=== PATIENT | female | born 2000 | race Caucasian/White ===

== ENCOUNTER 2023-11-27 08:00 | Day surgery (SDC) | payer BC, OTHER ==
[2023-11-21 09:13] VITALS: BP 117/76
[~2023-11-27] VITALS: Ht 162.6 cm; Wt 86.4 kg
[~2023-11-27 08:00] MED LIST: PROZAC20 MG PO; VISTARIL25 MG PO
[2023-11-27 08:36] VITALS: BP 119/73
--- NOTE | 2023-11-27 09:20 | NUR ---
0850: PATIENT UP TO BATHROOM TO DO FLEETS ENEMA. 0905: FLEETS ENEMA COMPLETE. PATIENT TOLERATED IT WELL. PATIENT BACK IN ROOM. 0910: IV FLUIDS STARTED. IV FLAGYL INFUSION STARTED. CALL LIGHT WITHIN REACH.
--- NOTE | 2023-11-27 10:56 | NUR ---
11/27/23 1056 Lara Landrum PT TO PACU ALERT AND AWAKE DENIES PAIN AND NAUSEA.
[2023-11-27 11:12] VITALS: BP 115/75
--- NOTE | 2023-11-27 13:31 | OR ---
[facility] [address] [place], [place] [address] Signed DATE OF OPERATION: 11/27/2023 SURGEON: Maribell Goldstein MD PREOPERATIVE DIAGNOSIS: Posterior midline anal skin tag (3 x 5 mm). POSTOPERATIVE DIAGNOSIS: Posterior midline anal skin tag (3 x 5 mm). PROCEDURE: Excision of posterior midline anal skin tag x1. ESTIMATED BLOOD LOSS: Minimal. INDICATIONS: Sridevi is a 23-year-old female, asked to see me for an external hemorrhoidal anal skin tag in the posterior midline. She told me it has been there several years. She describes an anal fissure while she lived in [place], [place]. She had been working with the colorectal surgeon. She is describing diltiazem cream that helped her fissure heal over. She has now moved to [place], [place]. She is doing work for the [employer]. She said that skin tag is troublesome for her perianal hygiene. She would like to have it removed. Her primary care provider asked to see me with respect to the above. In the office, one can easily see the small 3 x 5 mm skin tag. The posterior midline anal fissure has healed over. Her sphincter tone is quite significant given her young age and body habitus. She does have a little bit external hemorrhoid tissue as expected. I gave her our brochure on hemorrhoids and skin tags. We looked at it carefully. We had reviewed the nature of the surgery. She understands we will excise the skin tag but not close the skin. It will heal over secondarily over the course of a couple of months. She knows there is risk including, but not limited to bleeding, infection, scarring, change in contour of the skin as well as recurrent anal fissure and hemorrhoids. She has expressed understanding and would like to proceed. DESCRIPTION OF PROCEDURE: I met with Sridevi in our preop area. Our nurse in home sales representative provided her with a saddle block. She told me her back later to take her home. Specifically she said her sister would be returning. After this, we took Sridevi into the operating room and placed her in the prone tristian-knife position with appropriate padding and monitoring. She was given monitored anesthesia care per our nurse in home sales representative. She was given Electronically Signed By: MARIBELL GOLDSTEIN MD 11/27/23 1331 PATIENT NAME: SRIDEVI MART OPERATIVE REPORT DATE OF : 89 REPORT #: [id number] PHYSICIAN: MARIBELL GOLDSTEIN MD PCP: RUBI BELLA PA-C REPORT IS CONFIDENTIAL AND NOT TO BE RELEASED WITHOUT AUTHORIZATION [facility] [address] [place], [place] [address] Signed preoperative antibiotics along with subcutaneous heparin after the saddle block. SCDs were utilized. She was prepped and draped in the usual sterile fashion. We used cautery to simply excise the small skin tag and pass it off the field for pathologic review. As always, it bled a little bit, which was easily controlled with the cautery. We injected some additional local anesthetic underneath the area. A dry gauze was placed into the gluteal cleft and mesh underwear was applied. She was rotated in the supine position on her hospital bed and taken into the recovery room in stable condition. MD PATRICIO Duffy/MARISAL /[id number] cc: MD Rubi Duffy PA-C Copies: MARIBELL GOLDSTEIN MD, CHLOE K PA-C ~ Electronically Signed By: MARIBELL GOLDSTEIN MD 11/27/23 1331 PATIENT NAME: SRIDEVI MART OPERATIVE REPORT DATE OF : [birth year] REPORT #: [id number] PHYSICIAN: MARIBELL GOLDSTEIN MD PCP: RUBI BELLA PA-C REPORT IS CONFIDENTIAL AND NOT TO BE RELEASED WITHOUT AUTHORIZATION
--- NOTE | 2023-12-02 17:10 | PATH ---
[facility] [address] [place], [place] [address] Signed SPECIMEN(S): A ANAL SKIN TAG SPECIMEN SOURCE: A. ANAL SKIN TAG CLINICAL HISTORY: Anal skin tag FINAL PATHOLOGIC DIAGNOSIS: Anal skin tag: - Benign squamous fibroepithelial polyp. - Negative for atypical features of pathologic inflammation. JVR:clv MICROSCOPIC EXAMINATION: Histologic sections of all submitted blocks are examined by light microscopy. These findings, together with the gross examination, support the pathologic diagnosis. GROSS DESCRIPTION: The specimen, labeled and designated "Velho, M, " and designated on the requisition "anal skin tag," is received in formalin and consists of a 1.4 x 1.4 x 0.7 cm unoriented polypoid portion of skin. The skin surface is rush-cobb and wrinkled. The specimen is inked, sectioned and entirely submitted in (A1). FB (under the direct supervision of a pathologist) The Gross Description was prepared using a voice recognition system. The report was reviewed for accuracy; however, sound-alike word errors, addition and/or deletions may occur. If there is any question about this report, please contact Client Services. PERFORMING LABORATORY: Technical component was performed by [facility], [address] [place] [id number] (CLIA# [id number]). Professional interpretation was performed by [facility], [address] [place] [id number] (CLIA#: [id number]). Diagnostician: Gage Garza MD Pathologist Electronically Signed 12/02/2023 PATIENT NAME: RSIDEVI MART PATHOLOGY DATE OF : [birth year] REPORT #: [id number] PHYSICIAN: [facility] PCP: DARYL BELLA PA-C REPORT IS CONFIDENTIAL AND NOT TO BE RELEASED WITHOUT AUTHORIZATION [address] [place], [place] [address] Signed Copies: ~ PATIENT NAME: SRIDEVI MART PATHOLOGY DATE OF : [birth year] REPORT #: [id number] PHYSICIAN: [facility] PCP: DARYL BELLA PA-C REPORT IS CONFIDENTIAL AND NOT TO BE RELEASED WITHOUT AUTHORIZATION
== END 2023-11-27 11:25 | disposition home or self-care (01) ==
LOC: DS 08:00
PROVIDERS: ATTEND Colon & Rectal Surgery
PROC: 0DBQXZZ Excision of Anus, External Approach (ICD-10-PCS; principal; 2023-11-27 10:20)
DX: K64.4 Residual hemorrhoidal skin tags (principal); F32.9 Major depressive disorder, single episode, unspecified; J45.909 Unspecified asthma, uncomplicated
CPT/HCPCS: 00902; J0690; J1644; J1885; J2001; J2250; J2704; J7121

== ENCOUNTER 2024-09-17 17:28 | Emergency (ER) | payer BC ==
[~2024-09-17] VITALS: Ht 162.6 cm; Wt 80.0 kg
[~2024-09-17 17:28] MED LIST changes: +DEXTROAMP-AMPHE20 MG PO
[2024-09-17] MEDS ORDERED: DICLOFENAC POTA50 MG PO (17:45)
[2024-09-17] MEDS ORDERED: CYCLOBENZAPRINE HCL 10 MG TAB PO ONE (18:15)
[2024-09-17] MEDS ORDERED: ACETAMINOPHEN 500 MG TAB PO ONE (18:15)
[2024-09-17] MEDS ORDERED: IBUPROFEN 800 MG TAB PO ONE (18:15)
[2024-09-17] MEDS ORDERED: CYCLOBENZAPRINE10 MG PO (18:37)
[2024-09-17 18:45] VITALS: BP 113/75
== END 2024-09-17 18:45 | disposition home or self-care (01) ==
LOC: ED 17:28
DX: M54.50 Low back pain, unspecified (principal); M25.552 Pain in left hip; M25.551 Pain in right hip; W11.XXXA Fall on and from ladder, initial encounter; Z79.899 Other long term (current) drug therapy
CPT/HCPCS: 73502; 99283; A9270